=== PATIENT | female | born 1985 | race American Indian/Alaskan Native ===

== ENCOUNTER → 2022-10-04 | Outpatient (CLI) | payer OTHER ==
[~2022-10-04] MED LIST: CEPH500 PO; DOCU100 PO; Dulcolax5 MG PO; IBUP800 PO; OXYACE5T PO; PRAHYD1AE TOP; PRENATAL VITAM1 EACH PO; Pyridium200 MG PO
== END | disposition home or self-care (01) ==
LOC: LAB SHORT 07:38 → LAB 07:38
DX: R87.810 Cervical high risk human papillomavirus (HPV) DNA test positive (principal)
CPT/HCPCS: 88305

== ENCOUNTER 2024-11-02 07:47 | Emergency (ER) | payer OTHER ==
[~2024-11-02] VITALS: Ht 154.9 cm; Wt 94.3 kg
[2024-11-02] MEDS ORDERED: Ketorolac Tromethamine 30mg Vial IV ONE (09:10)
[2024-11-02] MEDS ORDERED: IBUP800 PO (09:45)
[2024-11-02] MEDS ORDERED: HYDROCODONE-AC1 EA10 PO (09:45)
[2024-11-02 09:50] VITALS: BP 130/86
== END 2024-11-02 09:50 | disposition home or self-care (01) ==
LOC: ER 07:47
DX: N23 Unspecified renal colic (principal)
CPT/HCPCS: 96374; 99283-25; J1885

== ENCOUNTER → 2024-12-20 | Outpatient (CLI) | payer OTHER ==
[~2024-12-20] MED LIST changes: +HYDROCODONE-AC1 EA10 PO
[2024-12-25 10:18] LABS: HPV HIGH RISK BY TMA Not Detected; HPV SOURCE Cervical
== END ==
LOC: LAB 12:13 → LAB SHORT 12:13
PROVIDERS: Family Medicine
DX: Z01.419 Encounter for gynecological examination (general) (routine) without abnormal findings (principal)
CPT/HCPCS: 87624; G0123